=== PATIENT | female | born 1965 | race African-American/Black ===

== ENCOUNTER 2017-02-20 23:50 | Emergency (ER) | payer SELFPAY ==
[~2017-02-20] VITALS: Ht 154.9 cm; Wt 59.9 kg
--- NOTE | 2017-02-21 01:49 | NUR ---
Patient discharged to home in stable conditon. Written and verbal after care instructions given. Patient verbalizes understanding of instructions.
[2017-02-21] MEDS ORDERED: TRAMADOL HCL 50 MG TABLET ONE (01:54)
[2017-02-21] MEDS ORDERED: TRAMADOL HCL 50 MG TABLET PO ONE (02:00)
== END 2017-02-21 01:50 | disposition home or self-care (01) ==
LOC: ER 02-21 00:13
DX: R51 Headache (principal); F32.9 Major depressive disorder, single episode, unspecified; F10.20 Alcohol dependence, uncomplicated; Z88.0 Allergy status to penicillin; Z88.1 Allergy status to other antibiotic agents
CPT/HCPCS: 70450; 99284; A4663